=== PATIENT | male | born 1960 | race Caucasian/White ===

== ENCOUNTER → 2023-12-01 15:53 | Outpatient (REF) | payer OTHER, SELFPAY | LOC: RAD 15:53 | PROVIDERS: ATTENDING PHYSICIAN Family Medicine; FAMILY PHYSICIAN Family Medicine | DX: M25.562 Pain in left knee (principal) | CPT/HCPCS: 73564; 93971 ==

== ENCOUNTER → 2024-01-18 07:09 | Outpatient (REF) | payer OTHER, SELFPAY | LOC: MRI 07:09 | PROVIDERS: ATTENDING PHYSICIAN Family Medicine | DX: M25.562 Pain in left knee (principal) | CPT/HCPCS: 73721 ==